=== PATIENT | female | born 1985 | race American Indian/Alaskan Native ===

== ENCOUNTER 2016-11-14 17:47 | Emergency (ER) | payer MEDICAID ==
[2016-11-14 18:13] VITALS: BP 129/71
== END 2016-11-14 19:55 | disposition left against medical advice (07) ==
LOC: ED 17:47
DX: J02.9 Acute pharyngitis, unspecified (principal); F41.9 Anxiety disorder, unspecified; F32.9 Major depressive disorder, single episode, unspecified; F17.200 Nicotine dependence, unspecified, uncomplicated; Z53.21 Procedure and treatment not carried out due to patient leaving prior to being seen by health care provider